=== PATIENT | male | born 1945 | race Caucasian/White ===

== ENCOUNTER 2016-09-22 18:17 | Emergency (ER) | payer BC ==
[~2016-09-22] VITALS: Ht 175.3 cm; Wt 109.1 kg
[~2016-09-22 18:17] MED LIST: BACTRIM DS 8001 TAB PO; NO HOME MEDICATIONS
[2016-09-22 18:19] VITALS: TEMP 96.7
[2016-09-22] MEDS ORDERED: CALCIUM 600/VIT1 CAP PO (18:25)
[2016-09-22 19:19] LABS: BASO # 0.1 (0.0-0.2); BASO % 0.8 % (0.0-2.0); EOS # 0.2 (0.0-0.7); EOS % 2.8 % (0-4.0); GRAN # 3.5 (1.4-6.5); GRAN % 54.1 % (42.2-75.2); HEMATOCRIT 44.9 % (42.0-52.0); HEMOGLOBIN 15.1 g/dl (13.5-18.0); LYMPH % 31.6 % (20.0-51.0); MEAN CELL VOLUME 96 fl (80.0-100.0); MEAN CORPUSCULAR HEMOGLOBIN 32 pg (27.0-31.0); MEAN CORPUSCULAR HGB CONC 34 g/dl (33.0-37.0); MEAN PLATELET VOLUME 10.2 fl (7.4-10.4); MONO # 0.7 (0.1-0.6); MONO % 10.4 % (1.7-9.3); PLATELET COUNT 186 K/mm3 (130-400); RED BLOOD COUNT 4.67 M/mm3 (4.20-5.60); REDCELL DISTRIBUTION WIDTH-CV 12.7 % (11.5-14.5); WHITE BLOOD COUNT 6.5 K/mm3 (4.8-10.8)
[2016-09-22 19:25] LABS: ALANINE AMINOTRANSFERASE 33 U/L (21-72); ALBUMIN 4.2 gm/dL (3.5-5.0); ALKALINE PHOSPHATASE 71 U/L (50-136); ANION GAP 15 mmol/L (7-16); BILIRUBIN,TOTAL 0.9 mg/dL (0.0-1.0); BLOOD UREA NITROGEN 24 mg/dL (9-20); CALCIUM 9.2 mg/dL (8.4-10.2); CARBON DIOXIDE 22 mmol/L (22-30); CHLORIDE 103 mmol/L (98-107); CREATININE, serum 1.12 mg/dL (0.66-1.25); GLUCOSE 89 mg/dL (74-106); POTASSIUM 3.9 mmol/L (3.4-5.0); SODIUM 140 mmol/L (137-145); TOTAL PROTEIN 7.9 gm/dL (6.4-8.2)
[2016-09-22 19:39] LABS: TROPONIN-I < 0.012 ng/mL (0.000-0.034)
[2016-09-22 20:46] VITALS: BP 148/87; PULSE 60
[2016-09-23] MEDS ORDERED: GLUCOSAMINE 1000 PO (15:30)
== END 2016-09-22 20:48 | disposition home or self-care (01) ==
LOC: COL.ER 18:17
PROVIDERS: Emergency Medicine
DX: K22.2 Esophageal obstruction (principal)
CPT/HCPCS: J7030

== ENCOUNTER 2016-09-23 14:46 | Day surgery (SDC) | payer BC ==
[~2016-09-23] VITALS: Ht 175.3 cm; Wt 114.7 kg
[~2016-09-23 14:46] MED LIST changes: +CALCIUM 600/VIT1 CAP PO
[2016-09-23 15:21] VITALS: BP 132/100; PULSE 66; TEMP 98
[2016-09-23] MEDS ORDERED: GLUCOSAMINE 1000 PO (15:30)
[2016-09-23 17:25] VITALS: BP 132/87; PULSE 65; TEMP 97.6
[2016-09-23 17:40] VITALS: BP 134/85; PULSE 66
== END 2016-09-23 17:53 | disposition home or self-care (01) ==
LOC: SDCO 14:46
DX: K22.2 Esophageal obstruction (principal); K21.0 Gastro-esophageal reflux disease with esophagitis; R13.12 Dysphagia, oropharyngeal phase
CPT/HCPCS: C1726; J2250; J3010; J7030